=== PATIENT | female | born 1995 | race Caucasian/White ===

== ENCOUNTER 2023-12-01 07:48 | Outpatient (CLI) | payer OTHER, SELFPAY ==
[2023-12-01 19:08] LABS: Hematocrit 42.8 % (37.0-47.0); Hemoglobin 13.6 g/dL (12.0-15.0); Mean Corpuscular HGB Conc 31.8 g/dl (32-36); Mean Corpuscular Hemoglobin 29.2 pg (26-34); Mean Platelet Volume 9.2 fl (7.4-10.4); Platelet Count Result 340 k/mm3 (150-375); Red Blood Count 4.65 M/mm3 (4.2-5.4); Red Cell Distribution Width 13.3 % (11.5-14.5); White Blood Count 8.4 K/mm3 (4.5-10.0)
[2023-12-01 19:34] LABS: Alanine Aminotransferase 19 U/L (6-35); Albumin Level 4.1 g/dL (3.5-5.1); Alkaline Phosphatase 84 U/L (38-126); Anion Gap 7 mmol/L (4-12); Aspartate Amino Transferase 35 U/L (14-36); Bilirubin,Total 0.4 mg/dL (0.2-1.3); Blood Urea Nitrogen 13 mg/dL (7-17); Calcium 9.1 mg/dL (8.4-10.2); Carbon Dioxide 21 mmol/L (22-30); Chloride 110 mmol/L (98-107); Cholesterol 139 mg/dL (0-200); Estimated Glomerular Filt Rate > 60; Glucose 87 mg/dL (65-110); HDL Direct 39 mg/dL; Potassium 4.3 mmol/L (3.4-5.0); Sodium 138 mmol/L (137-145); Triglycerides 191 mg/dL (<150)
[2023-12-01 19:56] LABS: LDL Cholesterol Direct 86 mg/dL
[2023-12-01 20:31] LABS: Hemoglobin A1C 5.3 % (<5.7)
== END 2023-12-01 07:49 | disposition home or self-care (01) ==
PROVIDERS: PCP Nurse Practitioner Adult Health; Visit Provider Nurse Practitioner Adult Health
DX: Z13.9 Encounter for screening, unspecified (principal); R73.03 Prediabetes
CPT/HCPCS: 36415; 80053; 80061; 83036; 84443; 85027

== ENCOUNTER 2024-06-18 08:30 | Outpatient (CLI) | payer OTHER, SELFPAY ==
[2024-06-18 20:39] LABS: Alanine Aminotransferase 28 U/L (6-35); Albumin Level 4.3 g/dL (3.5-5.1); Alkaline Phosphatase 81 U/L (38-126); Anion Gap 9 mmol/L (4-12); Aspartate Amino Transferase 59 U/L (14-36); Bilirubin,Total 0.5 mg/dL (0.2-1.3); Blood Urea Nitrogen 14 mg/dL (7-17); Calcium 9.2 mg/dL (8.4-10.2); Carbon Dioxide 22 mmol/L (22-30); Chloride 108 mmol/L (98-107); Cholesterol 116 mg/dL (0-200); Estimated Glomerular Filt Rate > 60; Glucose 87 mg/dL (65-110); HDL Direct 36 mg/dL; Potassium 4.2 mmol/L (3.4-5.0); Sodium 139 mmol/L (137-145); Triglycerides 119 mg/dL (<150)
[2024-06-18 20:50] LABS: LDL Cholesterol Direct 56 mg/dL
[2024-06-19 04:48] LABS: Hemoglobin A1C 5.5 % (<5.7)
== END 2024-06-18 08:31 | disposition home or self-care (01) ==
LOC: ANHBWCLAB 08:32
PROVIDERS: PCP Nurse Practitioner Adult Health; Visit Provider Nurse Practitioner Adult Health
DX: E78.5 Hyperlipidemia, unspecified (principal)
CPT/HCPCS: 36415; 80053; 80061; 83036

== ENCOUNTER 2024-12-13 08:07 | Outpatient (CLI) | payer OTHER, SELFPAY ==
--- OUTSIDE RECORDS SUMMARY | 2024-12-13 08:11 | XMS_ITS | Clinical Summary ---
Author Organization [facility] Medical Office Building [address] Address [address] [place] [address] Care Team Providers Care Benzene Worker Name Role Phone Unavailable Primary Care Provider Unavailabl e Allergies No known active allergies Medications polycarbophil (FIBERCON) 625 mg tablet Take 1 tablet (625 mg total) by mouth daily Active levonorgestreL (Mirena) IUD 1 each by intrauterine route once 023 Active fenofibrate nanocrystallized (TRICOR) 145 mg tabletIndications:Hyper cholesterolemia with hypertriglyceridemia Take 1 tablet (145 mg total) by mouth daily 90 tablet 3 023 Active rosuvastatin (CRESTOR) 10 mg tabletIndications:Hyper cholesterolemia with hypertriglyceridemia Take 1 tablet (10 mg total) by mouth nightly 90 tablet 3 023 Active Active Problems Problem Noted Date Diagnosed Date Hypercholesterolemia with hypertriglyceridemia 1 Assessment & Plan (06/07/2023 4:01 PM TISSUE TECHNICIAN): LDL at goal of less than 100, continue current prescription medications, rosuvastatin. Assessment & Plan (09/08/2022 4:48 PM TISSUE TECHNICIAN): Lipid panel greatly improved, cont current meds, Tricor, Crestor. Low chol diet recommended. Hair loss 11/17/2020 Assessment & Plan (11/17/2020 1:15 PM CDT): Labs ordered. Will follow. Referred to dermatology for further evaluation. Class 2 obesity due to exces s calories without serious comorbidity with body mass index (BMI) of 37.0 to 37.9 in adult 05/09/2019 Assessment & Plan (06/07/2023 4:01 PM TISSUE TECHNICIAN): Weight reduction, daily exercise and dietary modifications recommended., as obesity can complicate their hypercholesterolemia Assessment & Plan (09/08/2022 4:48 PM TISSUE TECHNICIAN): Weight reduction, daily exercise and dietary modifications recommended., as obesity can complicate their hypercholesterolemia Assessment & Plan (05/21/2020 9:43 AM CDT): BMI Follow-up includes: nutrition counseling The website cdc.gov (Centers for Disease Control) also has helpful information about diet/exercise..... click the Healthy Weight tab and then click the tabs Physical Activity for a Healthy Weight and Healthy Eating for a Healthy Weight . . Assessment & Plan (12/25/2019 4:07 PM CDT): Healthy, low carbohydrate lifestyle and exercise for 150min/week recommended Assessment & Plan (05/09/2019 2:58 PM CDT): Unchanged. Encouraged patient to decrease weight, increase daily exercise, and modify diet. Resolved Problems Problem Noted Date Diagnosed Date Resolved Date Annual physical exam 05/21/2020 022 Assessment & Plan (05/27/2021 10:41 AM CDT): Patient Counseling: --Nutrition: Stressed importance of moderation in sodium/caffeine intake, saturated fat and cholesterol, caloric balance, sufficient intake of fresh fruits, vegetables, --Exercise: Stressed the importance of regular exercise. --Dental health: Discussed importance of regular tooth brushing, flossing, and dental visits. --Immunizations reviewed and offered - routine labs ordered. Assessment & Plan (05/21/2020 9:43 AM CDT): -Recommended: Healthy diet. Avoiding junk food/fast food. -30 minutes of exercise most days of the week. Increase to 45 minutes for weight loss. Immunizations: Recommended influenza vaccine updated today, otherwise up today lose weight, increase physical activity, routine labs ordered, call if any problems Follow-up in 1 year. Immunizations Immunization Administration Dates Next Due DTP 01/15/1994,1993 DTP / HiB 11/19/1994,03/26/1994 DTaP 5 Pertussis 12/15/1998 HPV, Unspecified 11/06/2008,08/21/2008, 8 Hep A, Unspecified 03/31/2016,08/19/2015 Hep B, Unspecified 03/26/1994,1993, 994 HiB 01/15/1994,1993 IPV 12/15/1998 Influenza, Quadrivalent, Spl it, Preservative Free, Intramuscular 06/01/2023,05/28/2022,05/21/2020,05/23 Influenza, Unspecified 06/01/2023(Deferr ed: Patient Refused),04/22/2018 MMR 12/15/1998,11/19/1994 OPV, Unspecified 03/26/1994,01/15/1994, 4 Tdap 12/01/2015,01/21/2009 Surgical History Surgery Date Site/Laterality Comments SECTION 03/24/2022 Medical History Medical History Date Comments Vision problems Gestational Diabetes Family History Medical History Relation Name Comments Hypertension Father Mario Diabetes Maternal Grandfather Bao Heart attack Maternal Grandfather Bao Kidney disease Maternal Grandfather Bao Stroke Maternal Grandfather Bao Vision loss Maternal Grandfather Bao Cancer Maternal Grandmother María Miscarriages / Stillbirths Maternal Grandmother Nell L ou Hypertension Mother Relation Name Status Comments Father Mario Alive Maternal Grandfather Bao Maternal Grandmother María Mother Alive Social History Tobacco Use Types Packs/Day Years Used Date Smoking Tobacco: Never Smokeless Tobacco: Never Alcohol Use Standard Drinks/Week Comments Yes 0 (1 standard drink = 0.6 oz pur e alcohol) AUDIT-C Answer Date Recorded Q1: How often do you have a drink containing alcohol? Never 03/03/2022 Q2: How many drinks containi ng alcohol do you have on a typical day when you are drinking? Patient does not drink Q3: How often do you have si x or more drinks on one occasion? Never 03/03/2022 PHQ-2 Answer Date Recorded PHQ-2 Total Score (If total score is 3 or more points, staff should administer the PHQ-9) 0 06/01/2023 Comments Unknown Sex and Gender Information Value Date Recorded Sex Assigned at Not on file Legal Sex Female 5:27 PM TISSUE TECHNICIAN Gender Identity Not on file Sexual Orientation Straight 05/19/2020 8: 00 PM CDT Obstetrics History Para Term AB IAB SAB Ectopic Multiple Livin g Live Births 1 1 1 0 1 1 Date Outcome GA Total Labor Labor/2nd/3rd Weight Sex Type Anes PTL Yoli A1 A5 Name Clin 022 Term 39w 3d 0h 05m 0h 05m 3.733 kg (8 lb 3.7 oz) F CS-LT ranv Spinal N Livin g 9 9 RAMSAY ,GIRL MARYELLEN N Benoit Rosario MD Delivery Location:This [facility] ([facility] PROCED[facility]) Last Filed Vital Signs Vital Sign Reading Time Taken Comments Blood Pressure 122/64 06/01/2023 12:43 PM CDT Pulse 61 06/01/2023 12:43 PM CDT Temperature 37.1 C (98.7 F) 06/01/2023 12:43 PM CDT Respiratory Rate 16 06/01/2023 12:43 PM CDT Oxygen Saturation 100% 06/01/2023 12:43 PM CDT Inhaled Oxygen Concentration - - Weight 101.6 kg (224 lb) 06/01/2023 12:43 PM CDT Height 163.8 cm (5' 4.5 ) 06/01/2023 12:43 PM CD T Body Mass Index 37.86 06/01/2023 12:43 PM CDT Plan of Treatment Health Maintenance Due Date Last Done Comments Depression Screening 06/01/2024 06/01/2023, 09/08/2022, 05/28/2022, Additional history exists Regular Well Visit/Exam 18-64 06/01/2024 06/01/2023, 05/28/2022, 05/27/2021, Additional history exists Cervical Cancer Screening 03/07/2025 03/07/2020 Influenza Vaccine (Season Ended) 2025 06/01/2023, 05/28/2022, 05/21/2020, Additional history exists DTaP/Tdap/Td Vaccine (8 - Td or Tdap) 11/30/2025 12/01/2015, 01/21/2009, 12/15/1998, Additional history exists Hepatitis B Screening Completed 03/26/1994 , 1993, 1993 HPV Vaccines Completed 11/06/2008, 08/02, 03/11/2008 Hepatitis C Screening Completed 09/10/2021 Pneumococcal vaccine <65 Aged Out No longer eligible based on patient's age to complete this topic Varicella Vaccines Discontinued Procedures Procedure Name Priority Date/Time Associated Diagnosis Comments HEPATITIS C ANTIBODY Routine 09/10/2021 PAP SMEAR WITH HPV Routine 03/07/2020 from Last 3 Months or Most Recently Relevant to Health Maintenance Results * Hepatitis C antibody (09/10/2021) SCRIBED HCV ab negative Blood specimen (specimen) Benoit Granados MD LAB MICROBIOLOGY - GENERAL OR DERABLES Final Result * PAP SMEAR WITH HPV (03/07/2020) Historical Provider HEALTH MAINTENANCE Final Result from Last 3 Months or Most Recently Relevant to Health Maintenance Insurance [facility] PLUS [facility] HMO/PPO Address: [address] [address] [place] [address] [facility] H[facility]/PPO Address: [address] [address] [place] [phone] Advance Directives For more information, please contact: [phone] * Full Code (Latest Code Status on File) Date Activated Date Inactivated Comments 03/24/2022 9:33 AM 03/27/2022 5:04 PM * Full Code Date Activated Date Inactivated Comments 03/24/2022 5:37 AM 03/24/2022 9:33 AM Full CPR in case of cardiopulmonary arrest
--- OUTSIDE RECORDS SUMMARY | 2024-12-13 08:11 | XMS_ITS | Referral Summary ---
Author Organization [facility] Office Building [address] Address [address] [place] [address] Care Team Providers Care Caramel Candy Maker Helper Name Role Phone Unavailable Primary Care Provider [...] 1 Assessment & Plan (06/07/2023 4:01 PM ENDOSCOPY RN): LDL at goal of less than 100, continue current prescription medications, rosuvastatin. Assessment & Plan (09/08/2022 4:48 PM ENDOSCOPY RN): Lipid panel greatly improved, cont current meds, Tricor, Crestor. Low chol diet recommended. Hair loss 11/17/2020 Assessment & Plan (11/17/2020 1:15 PM CDT): Labs ordered. Will follow. Referred to dermatology for further evaluation. Class 2 obesity due to exces s calories without serious comorbidity with body mass index (BMI) of 37.0 to 37.9 in adult 05/09/2019 Assessment & Plan (06/07/2023 4:01 PM ENDOSCOPY RN): Weight reduction, daily exercise and dietary modifications recommended., as obesity can complicate their hypercholesterolemia Assessment & Plan (09/08/2022 4:48 PM ENDOSCOPY RN): Weight reduction, daily exercise and dietary modifications [...] 12/15/1998,11/19/1994 OPV, Unspecified 03/26/1994,01/15/1994, 4 Tdap 12/01/2015,01/21/2009 Social History Tobacco Use Types Packs/Day Years [...] on file Legal Sex Female 5:27 PM ENDOSCOPY RN Gender Identity Not on file Sexual Orientation Straight 05/19/2020 8: 00 PM CDT Last Filed Vital Signs Vital Sign Reading [...] 06/01/2023 12:43 PM CDT Plan of Treatment Not on file Procedures Procedure Name Priority Date/Time Associated Diagnosis Comments HEPATITIS C ANTIBODY Routine 09/10/2021 PAP SMEAR WITH HPV Routine 03/07/2020 from Last 3 Months or Most Recently Relevant to Health Maintenance Results * Hepatitis C antibody (09/10/2021) SCRIBED HCV ab negative Blood specimen (specimen) Benoit Granados MD LAB MICROBIOLOGY - GENERAL OR DERABLES Final Result * PAP SMEAR WITH HPV (03/07/2020) [facility] Provider HEALTH MAINTENANCE Final Result from Last 3 Months or Most Recently Relevant to Health Maintenance Insurance [facility]/PPO Address: [address] [address] [place] [address] [facility]/PPO Address: [address] [place] [address] Advance Directives For more information, please contact: [phone] * Full Code (Latest Code Status on File) Date Activated Date Inactivated Comments 03/24/2022 9:33 AM 03/27/2022 5:04 PM * Full Code Date Activated Date Inactivated Comments 03/24/2022 5:37 AM 03/24/2022 9:33 AM Full CPR in case of cardiopulmonary arrest
[2024-12-13 19:20] LABS: Alanine Aminotransferase 34 U/L (6-35); Albumin Level 4.2 g/dL (3.5-5.1); Alkaline Phosphatase 79 U/L (38-126); Anion Gap 11 mmol/L (4-12); Aspartate Amino Transferase 67 U/L (14-36); Bilirubin,Total 0.4 mg/dL (0.2-1.3); Blood Urea Nitrogen 11 mg/dL (7-17); Calcium 9.3 mg/dL (8.4-10.2); Carbon Dioxide 22 mmol/L (22-30); Chloride 109 mmol/L (98-107); Cholesterol 127 mg/dL (0-200); Estimated Glomerular Filt Rate > 60; Glucose 91 mg/dL (65-110); HDL Direct 41 mg/dL; Potassium 4.1 mmol/L (3.4-5.0); Sodium 142 mmol/L (137-145); Triglycerides 167 mg/dL (<150)
[2024-12-13 19:32] LABS: LDL Cholesterol Direct 52 mg/dL
[2024-12-13 21:45] LABS: Hemoglobin A1C 5.3 % (<5.7)
[2024-12-14 05:43] LABS: Free T4 Free Thyroxine Reflex 1.31 ng/dL (0.78-2.19)
[2024-12-14 06:26] LABS: Total Triiodothyronine (T3) 1.48 NG/ML (0.97-1.69)
== END 2024-12-13 08:08 | disposition home or self-care (01) ==
LOC: ANHBWCLAB 08:08
PROVIDERS: PCP Nurse Practitioner Adult Health; Visit Provider Nurse Practitioner Adult Health
DX: E78.5 Hyperlipidemia, unspecified (principal)
CPT/HCPCS: 36415; 80053; 80061; 83036; 84439; 84443; 84480